=== PATIENT | male | born 1980 | race Caucasian/White ===

== ENCOUNTER 2017-04-10 11:48 | Emergency (ER) | payer OTHER ==
[~2017-04-10] VITALS: Ht 170.2 cm; Wt 83.9 kg
[~2017-04-10 11:48] MED LIST: CIPRO500 MG PO; KEFLEX250 MG PO; TRIAMCINOLONE A15 GM TOP
[2017-04-10] MEDS ORDERED: IBUPROFEN800 MG PO (12:08)
== END 2017-04-10 12:25 | disposition home or self-care (01) ==
LOC: ED 11:48
DX: S19.9XXA Unspecified injury of neck, initial encounter (principal); X50.0XXA Overexertion from strenuous movement or load, initial encounter; Y99.0 Civilian activity done for income or pay

== ENCOUNTER 2021-04-25 19:20 | Emergency (ER) | payer BC ==
[~2021-04-25] VITALS: Ht 170.2 cm; Wt 85.7 kg
[~2021-04-25 19:20] MED LIST changes: +IBUPROFEN800 MG PO
[2021-04-25] MEDS ORDERED: VENTOLIN HFA18 GM INH (23:14)
[2021-04-25] MEDS ORDERED: IBU800 MG PO (23:16)
[2021-04-25] MEDS ORDERED: TYLENOL EXTRA500 MG PO (23:16)
== END 2021-04-25 23:42 | disposition home or self-care (01) ==
LOC: ED 19:20
DX: J06.9 Acute upper respiratory infection, unspecified (principal); B34.9 Viral infection, unspecified; J98.01 Acute bronchospasm; R06.2 Wheezing
CPT/HCPCS: 71045; 94640; 99284-25